=== PATIENT | male | born 1980 ===

== ENCOUNTER 2020-08-08 20:48 | Emergency (ER) | payer SELFPAY ==
[~2020-08-08] VITALS: Ht 175.3 cm; Wt 75.5 kg
[2020-08-09 01:26] VITALS: BP 141/88
== END 2020-08-09 01:28 | disposition home or self-care (01) ==
LOC: ED 21:18
DX: J20.8 Acute bronchitis due to other specified organisms (principal); R21 Rash and other nonspecific skin eruption; Z59.0 Homelessness; F17.200 Nicotine dependence, unspecified, uncomplicated; Z72.9 Problem related to lifestyle, unspecified
CPT/HCPCS: 71045; 99283